=== PATIENT | male | born 1990 | race Two or more races ===

== ENCOUNTER 2019-07-28 18:28 | Emergency (ER) | payer SELFPAY ==
[~2019-07-28] VITALS: Ht 170.2 cm; Wt 84.0 kg
[2019-07-28 18:44] VITALS: BP 126/74
== END 2019-07-28 19:41 | disposition home or self-care (01) ==
LOC: ED 19:25
DX: G89.29 Other chronic pain (principal); M54.5 Low back pain; M25.561 Pain in right knee
CPT/HCPCS: 99282

== ENCOUNTER 2019-10-22 00:33 | Inpatient (IN) | payer MEDICAID ==
[~2019-10-22] VITALS: Ht 167.6 cm; Wt 90.0 kg
--- NOTE | 2019-10-22 00:57 | NUR ---
TASK RN: PT SITTING UP IN [place], AWAKE/ALERT. RESPIRATIONS EVEN/RAPID AND MILDLY LABORED. PT SPEAKING IN FULL SENTENCES. SPO2 88-90% ON RA. PLACED ON 2-3L BY NC, SPO2 TO >90%. PT REPORTS WORSENING COUGH XTWO MONTHS W/ ASSOCIATED DULL CP. CP WORSE WITH DEEP BREATHING/COUGHING AND IS TENDER TO PALPATION. +SUBJECTIVE FEVER/CHILLS. PT REPORTS BEING SEEN AT [facility] FOR SAME, "THEY FLUSHED MY SYSTEM AND GAVE ME SOME MEDS". BP/SPO2/ECG MONITORING IN PLACE SINUS TACH ON MONITOR. REPORT TO PRIMARY RNJANUARY.
[2019-10-22] MEDS ORDERED: ALBUTEROL/IPRATROPIUM 2.5MG/0.5MG, 3 ML NPPB ONE (01:00)
[2019-10-22] MEDS ORDERED: ACETAMINOPHEN 500 MG TABLET ONE (01:22)
[2019-10-22] MEDS ORDERED: ACETAMINOPHEN 500 MG TABLET PO ONE (01:30)
[2019-10-22 01:47] LABS: RAPID INFLUENZA A Negative (Negative); RAPID INFLUENZA B Negative (Negative)
[2019-10-22 01:54] LABS: BASOPHILS # (AUTO) 0.04 x10^3/uL (0-0.1); BASOPHILS % (AUTO) 0 % (0-1); EOSINOPHILS % (AUTO) 0 % (1-7); LYMPHOCYTES # (AUTO) 1.79 x10^3/uL (1-3.4); LYMPHOCYTES % (AUTO) 18 % (22-44); MD NO; MEAN CORPUSCULAR HEMOGLOBIN 30.5 pg (27.5-34.5); MEAN CORPUSCULAR HGB CONC 34.3 g/dL (33.2-36.2); MEAN PLATELET VOLUME 8.4 fL (7.4-10.4); MONOCYTES # (AUTO) 0.97 x10^3/uL (0.2-0.8); MONOCYTES % (AUTO) 10 % (2-9); NEUTROPHILS % (AUTO) 72 % (42-75); PLATELET COUNT 163 x10^3/uL (130-400); RED BLOOD COUNT 4.86 x10^6/uL (4.38-5.82); RED CELL DISTRIBUTION WIDTH 14.6 % (9.4-14.8)
[2019-10-22 02:08] LABS: ANION GAP 7 mmol/L (5-15); CALCIUM 8.6 mg/dL (8.5-10.1); CHLORIDE 105 mmol/L (98-107); CREATININE 1.05 mg/dL (0.7-1.3)
[2019-10-22 02:11] LABS: TROPONIN I < 0.015 ng/mL (0.000-0.045)
[2019-10-22] MEDS ORDERED: CEFTRIAXONE PMX 1GM/50ML 50 ML IVPB ONE (03:00)
[2019-10-22] MEDS ORDERED: SODIUM CHLORIDE 0.9% 1,000ML IVBOLUS ONE ×2 (03:00→04:00)
[2019-10-22] MEDS ORDERED: AZITHROMYCIN 500 MG in SODIUM CHLORIDE 0.9% 250 ML IV ONE (03:00)
--- NOTE | 2019-10-22 03:12 | NUR ---
pt to cta at this time. piv placed. meds to be given upon return
[2019-10-22] MEDS ORDERED: CEFTRIAXONE PMX 1GM/50ML 50 ML ONE (03:14)
[2019-10-22] MEDS ORDERED: SODIUM CHLORIDE 0.9% 1,000 ML IV ONE (03:35)
[2019-10-22] MEDS ORDERED: BENZONATATE 100 MG CAPSULE ONE (03:48)
[2019-10-22] MEDS ORDERED: OMNIPAQUE 350 MG/ML, 100ML BOTTLE ONE (03:51)
[2019-10-22] MEDS ORDERED: BENZONATATE 100 MG CAPSULE PO ONE (04:00)
--- NOTE | 2019-10-22 04:04 | NUR ---
report given to maurice morgan
[2019-10-22] MEDS ORDERED: POLYETHYLENE GLYCOL 17 GM PACKET PO PRN (04:30)
[2019-10-22] MEDS ORDERED: OXYcodone IR 5MG TABLET PO PRN (04:30)
[2019-10-22] MEDS ORDERED: ONDANSETRON ODT 4 MG PO PRN (04:30)
[2019-10-22] MEDS ORDERED: hydrALAzine 20 MG/ML, 1ML IVPush PRN (04:30)
[2019-10-22] MEDS ORDERED: DOCUSATE 100 MG CAPSULE PO PRN (04:30)
[2019-10-22] MEDS ORDERED: ONDANSETRON 2MG/ML, 2ML IVPush PRN (04:30)
[2019-10-22] MEDS ORDERED: ACETAMINOPHEN 325 MG TABLET PO PRN (04:30)
[2019-10-22] MEDS ORDERED: PROMETHAZINE 25 MG/ML, 1ML IM PRN (04:30)
[2019-10-22] MEDS ORDERED: morphine SULFATE 10 MG/ML, 1ML IVPush PRN (04:30)
[2019-10-22] MEDS ORDERED: BISACODYL 10 MG SUPP PR PRN (04:30)
[2019-10-22 04:37] VITALS: BP 106/70
[2019-10-22 05:26] LABS: FREE T4 (FREE THYROXINE) 1.75 ng/dL (0.76-1.46)
[2019-10-22] MEDS: DOXYCYCLINE 100MG TABLET PO SCH ×2 (05:43→17:16)
[2019-10-22] MEDS: AMPICILLIN/SULBACTAM 3 GM in SODIUM CHLORIDE 0.9% 100 ML IV SCH ×4 (05:43→22:57)
[2019-10-22] MEDS: GUAIFENESIN ER 600 MG TABLET PO SCH ×3 (05:43→20:24)
[2019-10-22] MEDS: SODIUM CHLORIDE 0.9% 1,000 ML IV SCH ×2 (05:43→19:00)
[2019-10-22 07:05] VITALS: BP 96/66
[2019-10-22 15:02] VITALS: BP 125/76
[2019-10-22] MEDS ORDERED: MAGNESIUM SULFATE PMX 2GM/50ML 50 ML IV ONE (17:30)
[2019-10-22 18:50] VITALS: BP 125/85
[2019-10-23 01:18] VITALS: BP 117/73
[2019-10-23 04:58] LABS: ANION GAP 8 mmol/L (5-15); CALCIUM 8.6 mg/dL (8.5-10.1); CHLORIDE 107 mmol/L (98-107)
[2019-10-23] MEDS: AMPICILLIN/SULBACTAM 3 GM in SODIUM CHLORIDE 0.9% 100 ML IV SCH ×4 (04:58→23:01)
[2019-10-23] MEDS: DOXYCYCLINE 100MG TABLET PO SCH ×2 (04:58→17:09)
[2019-10-23 05:05] LABS: ALANINE AMINOTRANSFERASE 54 U/L (12-78); ALKALINE PHOSPHATASE 57 U/L (45-117); BILIRUBIN,TOTAL 0.7 mg/dL (0.2-1.0); CHOL/HDL RATIO 4.7; CHOLESTEROL, TOTAL 118 mg/dL (140-239); HDL CHOL % 21 % (26-37); HDL CHOLESTEROL (DIRECT) 25 mg/dL (40-60); LDL CHOLESTEROL,CALCULATED 80 mg/dL (54-169); LDL/HDL RATIO 3.2 (0.5-3.0); TOTAL PROTEIN 7.1 g/dL (6.4-8.2); TRIGLYCERIDES 67 mg/dL (50-200); VLDL CHOLESTEROL 13 mg/dL (0-25)
[2019-10-23 05:06] LABS: BASOPHILS # (AUTO) 0.03 x10^3/uL (0-0.1); BASOPHILS % (AUTO) 0 % (0-1); EOSINOPHILS # (AUTO) 0.05 x10^3/uL (0-0.4); EOSINOPHILS % (AUTO) 1 % (1-7); LYMPHOCYTES # (AUTO) 2.05 x10^3/uL (1-3.4); LYMPHOCYTES % (AUTO) 26 % (22-44); MD NO; MEAN CORPUSCULAR HEMOGLOBIN 30.7 pg (27.5-34.5); MEAN CORPUSCULAR HGB CONC 33.8 g/dL (33.2-36.2); MEAN CORPUSCULAR VOLUME 90.9 fL (81-97); MEAN PLATELET VOLUME 8.2 fL (7.4-10.4); MONOCYTES # (AUTO) 0.91 x10^3/uL (0.2-0.8); MONOCYTES % (AUTO) 12 % (2-9); NEUTROPHILS # (AUTO) 4.72 x10^3/uL (1.8-6.8); NEUTROPHILS % (AUTO) 61 % (42-75); PLATELET COUNT 157 x10^3/uL (130-400); RED BLOOD COUNT 4.85 x10^6/uL (4.38-5.82); RED CELL DISTRIBUTION WIDTH 14.3 % (9.4-14.8)
[2019-10-23 06:47] VITALS: BP 109/74
[2019-10-23] MEDS: GUAIFENESIN ER 600 MG TABLET PO SCH ×2 (08:38→20:48)
[2019-10-23 13:39] VITALS: BP 138/72
[2019-10-23 19:28] VITALS: BP 115/72
[2019-10-24 01:40] VITALS: BP 124/74
[2019-10-24] MEDS: DOXYCYCLINE 100MG TABLET PO SCH (05:05)
[2019-10-24] MEDS: AMPICILLIN/SULBACTAM 3 GM in SODIUM CHLORIDE 0.9% 100 ML IV SCH ×2 (05:05→11:00)
[2019-10-24 07:02] VITALS: BP 115/75
[2019-10-24] MEDS: GUAIFENESIN ER 600 MG TABLET PO SCH (09:47)
[2019-10-24 14:21] VITALS: BP 148/76
[2019-10-24] MEDS ORDERED: CEFD300C37 PO (15:13)
[2019-10-24] MEDS ORDERED: GUAI600T31 PO (15:13)
[2019-10-24] MEDS ORDERED: AZIT500T10 PO (15:13)
== END 2019-10-24 15:36 | disposition home or self-care (01) | DRG 871 ==
LOC: ED 01:15 → EDIP 03:35 → 4WST 04:30
PROVIDERS: ADMIT Internal Medicine; ATTEND Internal Medicine
DX: A41.9 Sepsis, unspecified organism (principal); J96.01 Acute respiratory failure with hypoxia; J69.0 Pneumonitis due to inhalation of food and vomit; J21.9 Acute bronchiolitis, unspecified; J90 Pleural effusion, not elsewhere classified; J98.11 Atelectasis; E83.42 Hypomagnesemia; R65.20 Severe sepsis without septic shock; Z85.72 Personal history of non-Hodgkin lymphomas; Z87.891 Personal history of nicotine dependence
CPT/HCPCS: 36415; 84145; 87400; 96365; 99291; J7620; 71046; 71275; 74176; 80048; 80053; 80061; 83036; 83605; 83735; 84100; 84439; 84443; 84484; 85025; 87040; 87070; 87205; 93005; 93306; 94640; G0378; J0295; J0456; J0696; Q0162; Q9967; J3475; J7030; J7050